=== PATIENT | female | born 1980 | race Caucasian/White ===

== ENCOUNTER → 2023-07-07 11:21 | Outpatient (REF) | payer OTHER, SELFPAY | LOC: HWWDC 11:21 | PROVIDERS: ATTENDING PHYSICIAN Physician Assistant Medical | DX: Z12.31 Encounter for screening mammogram for malignant neoplasm of breast (principal) | CPT/HCPCS: 77063; 77067 ==

== ENCOUNTER → 2024-07-08 14:29 | Outpatient (REF) | payer OTHER, SELFPAY | LOC: HWWDC 14:29 | PROVIDERS: ATTENDING PHYSICIAN Physician Assistant Medical | DX: Z12.31 Encounter for screening mammogram for malignant neoplasm of breast (principal) | CPT/HCPCS: 77063; 77067 ==